=== PATIENT | female | born 1950 | race African-American/Black ===

== ENCOUNTER 2019-03-24 20:18 | Emergency (ER) | payer OTHER ==
[~2019-03-24] VITALS: Ht 160 cm; Wt 82.0 kg
[2019-03-24] MEDS ORDERED: IBUPROFEN 600MG TABLET PO ONE (22:45)
[2019-03-25] MEDS ORDERED: ACETAMINOPHEN 500MG TABLET PO ONE (01:00)
[2019-03-25 01:33] VITALS: BP 128/74
== END 2019-03-25 01:34 | disposition home or self-care (01) ==
LOC: ER 20:18
DX: M79.671 Pain in right foot (principal)
CPT/HCPCS: 29515; 73610; 73630; 99283; Z7610

== ENCOUNTER 2022-11-24 23:21 | Emergency (ER) | payer OTHER ==
[~2022-11-24] VITALS: Ht 165.1 cm; Wt 90.0 kg
[2022-11-25] MEDS ORDERED: FAMOTIDINE 20MG TABLET PO ONE (00:15)
[2022-11-25] MEDS ORDERED: PREDNISONE 20MG TABLET PO ONE (00:15)
[2022-11-25] MEDS ORDERED: DIPHENHYDRAMINE 25MG CAPSULE PO ONE (00:15)
[2022-11-25 00:34] LABS: BASOPHILS % 0.5 % (0.0-2.0); EOSINOPHILS % 2.2 % (0.0-5.0); LYMPHOCYTES % 28.9 % (20.0-50.0); MEAN CORPUSCULAR HEMOGLOBIN 29.1 pg (28.0-32.0); MEAN CORPUSCULAR VOLUME 89.8 fL (81.0-99.0); MEAN PLATELET VOLUME 9.2 fl (7.4-10.4); MONOCYTES % 8.1 % (2.0-8.0); NEUTROPHILS % 60.3 % (40.0-76.0); PLATELET 252 x1000/uL (130-400); RED BLOOD CELL COUNT 4.12 mill/uL (4.2-5.4); RED CELL DISTRIBUTION WIDTH 13.9 % (11.6-14.6)
[2022-11-25 00:38] LABS: CHLORIDE 107 mEq/L (98-107)
[2022-11-25] MEDS ORDERED: FAMOTIDINE 20MG TABLET PO NR (03:15)
[2022-11-25] MEDS ORDERED: PREDNISONE 20MG TABLET PO NR (03:15)
[2022-11-25] MEDS ORDERED: DIPHENHYDRAMINE 25MG CAPSULE PO NR (03:15)
[2022-11-25] MEDS ORDERED: DIPH25CA83 MT (03:44)
[2022-11-25] MEDS ORDERED: EPIN0.3P3 IM (03:44)
[2022-11-25 03:47] VITALS: BP 132/70
== END 2022-11-25 03:56 | disposition home or self-care (01) ==
LOC: ER 23:21
DX: R06.02 Shortness of breath (principal); R13.10 Dysphagia, unspecified; E11.9 Type 2 diabetes mellitus without complications; I10 Essential (primary) hypertension
CPT/HCPCS: 36415; 71045; 80053; 83880; 84484; 85025; 99284; J7512; Q0163